=== PATIENT | male | born 1970 | race Caucasian/White ===

== ENCOUNTER 2022-02-03 02:52 | Emergency (ER) | payer BC ==
[2022-02-03] MEDS ORDERED: PANTOPRAZOLE 40 MG/10 ML VIAL IVP STA (02:55)
[2022-02-03] MEDS ORDERED: SODIUM CHLORIDE 0.9% 1,000 ML IV STA (02:55)
[2022-02-03] MEDS ORDERED: ONDANSETRON 4 MG/2 ML VIAL IM STA (02:55)
--- NOTE | 2022-02-03 02:55 | ED ---
GI Bleed HPI - General Stated complaint: GI Bleed Time Seen by Provider: 02/03/22 02:55 Source: RN notes reviewed, old records reviewed Mode of arrival: EMS Limitations: no limitations - History of Present Illness Initial comments: This is a 51-year-old male to the ER for evaluation patient coming in for near syncopal event weakness lethargy and coughing up blood with blood clots. No abdominal plain. Unsure patient has had blood in the stool. Patient has never had a colonoscopy MD complaint: blood streaked emesis -: days(s) Radiation: none, throat Quality: painless Consistency: constant, intermittent Worsens with: none Context: other (0) Associated Symptoms: nausea, loss of appetite, malaise, weakness Review of Systems ROS Statement: Those systems with pertinent positive or pertinent negative responses have been documented in the HPI. ROS Other: All systems not noted in ROS Statement are negative. General Exam Limitations: altered mental status, physical limitation General appearance: alert, anxious, lethargic, in distress Head exam: Present: atraumatic, normocephalic, normal inspection Eye exam: Present: normal appearance, PERRL, EOMI. Absent: scleral icterus, conjunctival injection, periorbital swelling ENT exam: Present: mucous membranes dry, mucous membranes moist Neck exam: Present: normal inspection. Absent: tenderness, meningismus, lymphadenopathy Respiratory exam: Present: normal lung sounds bilaterally. Absent: respiratory distress, wheezes, rales, rhonchi, stridor Cardiovascular Exam: Present: regular rate, normal rhythm, normal heart sounds. Absent: systolic murmur, diastolic murmur, rubs, gallop, clicks GI/Abdominal exam: Present: soft, normal bowel sounds. Absent: distended, tenderness, guarding, rebound, rigid Extremities exam: Present: normal inspection, full ROM, normal capillary refill. Absent: tenderness, pedal edema, joint swelling, calf tenderness Back exam: Present: normal inspection Neurological exam: Present: alert, oriented X3, CN II-XII intact Psychiatric exam: Present: normal affect, normal mood Skin exam: Present: warm, dry, intact, normal color. Absent: rash Course Vital Signs 02/03/22 02/03/22 02/03/22 03:01 03:20 03:30 Temperature 97.8 F Pulse Rate 90 93 80 Respiratory 18 20 20 Rate Blood Pressure 89/66 98/63 73/47 O2 Sat by Pulse 96 100 100 Oximetry 02/03/22 02/03/22 02/03/22 03:40 03:55 04:06 Temperature 98.2 F Pulse Rate 81 82 80 Respiratory 20 18 Rate Blood Pressure 66/41 106/75 108/67 O2 Sat by Pulse 96 100 100 Oximetry 02/03/22 04:08 Temperature Pulse Rate 80 Respiratory 20 Rate Blood Pressure 112/73 O2 Sat by Pulse 100 Oximetry - Reevaluation(s) Reevaluation #1: 02/03/22 04:15 Medical records reviewed Reevaluation #2: 02/03/22 04:15 the patient does have improvement blood pressure here in the ER Reevaluation #3: 02/03/22 04:15 Patient informed results and questions answered - Consultations Consultation #1: spoke with [facility] agrees to accept patient in transfer Medical Decision Making - Medical Decision Making 51 male coughing up clots, patient is not on blood thinners. Significant amount of anemia. Just on physical exam. Massive blood transfusion as initiated and patient be transferred for GI consultation and management - Lab Data Result diagrams: 02/03/22 03:00 Lab Results 02/03/22 02/03/22 Range/Units 03:00 03:00 Sodium 136 L (137-145) mmol/L Potassium 3.8 (3.5-5.1) mmol/L Chloride 103 (98-107) mmol/L Carbon Dioxide 19 L (22-30) mmol/L Anion Gap 14 mmol/L BUN 51 H (9-20) mg/dL Creatinine 1.49 H (0.66-1.25) mg/dL Est GFR (CKD-EPI)AfAm 61 (>60 ml/min/1.73 sqM) Est GFR (CKD-EPI)NonAf 53 (>60 ml/min/1.73 sqM) Glucose 202 H (74-99) mg/dL Calcium 8.0 L (8.4-10.2) mg/dL Magnesium 2.1 (1.6-2.3) mg/dL Total Bilirubin 0.1 L (0.2-1.3) mg/dL AST 25 (17-59) U/L ALT 15 (4-49) U/L Alkaline Phosphatase 45 (38-126) U/L Total Protein 6.1 L (6.3-8.2) g/dL Albumin 3.9 (3.5-5.0) g/dL Lipase 38 (23-300) U/L Blood Type Recheck No Previous Record Bld Type Recheck Status CABO Indicated Crossmatch See Detail Spec Expiration Date 02/06/20222299 - EKG Data -: EKG Interpreted by Me (EKG sinus 89 ME 172 QRS 78 QTc 419) Critical Care Time Critical Care Time: Yes Total Critical Care Time: 31 Disposition Clinical Impression: Hematochezia, Melena, Anemia, Shock, UGIB (upper gastrointestinal bleed) Disposition: OTHER INSTITUTION NOT DEFINED Condition: Critical Instructions (If sedation given, give patient instructions): Gastrointestinal Bleeding (ED) Is patient prescribed a controlled substance at d/c from ED?: No Referrals: Alyson Smith, [facility] [REFERRING] - 1-2 days Time of Disposition: 04:00 - Out of Hospital Transfer - Req. Specs Out of Hospital Transfer - Requested Specifics: Other Emergency Center ([facility])
[2022-02-03 03:44] LABS: Anisocytosis Slight; Basophils # (A) 0.1 k/uL (0-0.2); Basophils % (A) 1 %; Eosinophils # (A) 0.4 k/uL (0-0.7); Eosinophils % (A) 3 %; HCT 21.3 % (39.0-53.0); Hypochromasia Moderate; Lymphocytes # (A) 4.8 k/uL (1.0-4.8); Lymphocytes % (A) 33 %; MCH 27.6 pg (25.0-35.0); MCHC 30.6 g/dL (31.0-37.0); MCV 90.3 fL (80.0-100.0); Mean Platelet Volume 7.8; Monocytes # (A) 0.7 k/uL (0-1.0); Monocytes % (A) 5 %; Neutrophils # (A) 8.4 k/uL (1.3-7.7); Neutrophils % (A) 57 %; Platelet Count 348 k/uL (150-450); RBC 2.36 m/uL (4.30-5.90); RDW 16.7 % (11.5-15.5); WBC 14.5 k/uL (3.8-10.6)
[2022-02-03 04:05] VITALS: TEMP 98.2
[2022-02-03 04:06] LABS: ALT 15 U/L (4-49); AST 25 U/L (17-59); African American GFR (CKD) 61 (>60 ml/min/1.73 sqM); Albumin 3.9 g/dL (3.5-5.0); Alkaline Phosphatase 45 U/L (38-126); Anion Gap 14 mmol/L; Blood Urea Nitrogen 51 mg/dL (9-20); Carbon Dioxide 19 mmol/L (22-30); Chloride 103 mmol/L (98-107); Glucose 202 mg/dL (74-99); Lipase 38 U/L (23-300); Magnesium 2.1 mg/dL (1.6-2.3); Non-African American GFR(CKD) 53 (>60 ml/min/1.73 sqM); Potassium 3.8 mmol/L (3.5-5.1); Sodium 136 mmol/L (137-145); Total Bilirubin 0.1 mg/dL (0.2-1.3); Total Protein 6.1 g/dL (6.3-8.2)
[2022-02-03 04:19] LABS: Lactic Acid, Venous 3.8 mmol/L (0.7-2.0)
[2022-02-03 04:24] VITALS: RESP 18
[2022-02-03 04:24] LABS: HGB 6.5 gm/dL (13.0-17.5)
[2022-02-03 04:32] LABS: Prothrombin Time 10.6 sec (9.0-12.0)
[2022-02-03 04:44] VITALS: BP 120/72; PULSE 80
[2022-02-03 05:18] LABS: Partial Thromboplastin Time 17.5 sec (22.0-30.0)
== END 2022-02-03 04:45 | disposition other institution (70) ==
LOC: EC 02:52
DX: K92.2 Gastrointestinal hemorrhage, unspecified (principal); K92.1 Melena; D64.9 Anemia, unspecified; R57.9 Shock, unspecified
CPT/HCPCS: 36415; 93005; 86900; 86901; 80051; 80053; 82330; 82140; 83605; 83690; 83735; 84484; 85025; 85027; 85384; 85610; 85730; 86850; 86920; 99291; 96374; 96372; 96361; P9016; P9059; J2405; C9113